=== PATIENT | female | born 1980 | race Caucasian/White ===

== ENCOUNTER 2022-05-04 13:59 | Emergency (ER) | payer MEDICAID ==
[~2022-05-04] VITALS: Ht 156.8 cm; Wt 48.6 kg
[~2022-05-04 13:59] MED LIST: NO HOME MEDS
[2022-05-04 14:21] VITALS: BP 113/74
--- NOTE | 2022-05-04 14:31 | NUR ---
counseling case manager/intelligence officer basic david [phone]
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
[2022-05-04] MEDS ORDERED: LIDOcaine 5% patch TP STA (16:07)
[2022-05-04] MEDS ORDERED: LIDO700A32 TOP (16:13)
== END 2022-05-04 17:00 | disposition home or self-care (01) ==
LOC: ER 14:00
DX: R07.81 Pleurodynia (principal); Y08.89XA Assault by other specified means, initial encounter; Y93.89 Activity, other specified; Y92.89 Other specified places as the place of occurrence of the external cause; Y99.8 Other external cause status
CPT/HCPCS: 71045; 99283